=== PATIENT | female | born 1995 | race Caucasian/White ===

== ENCOUNTER 2024-04-13 18:24 | Emergency (ER) | payer BC ==
[~2024-04-13] VITALS: Ht 157.5 cm; Wt 83.0 kg
[2024-04-13 18:33] VITALS: BP 104/80; PULSE 95; RESP 20; TEMP 97.5; O2SAT 96
[2024-04-13] MEDS ORDERED: AMOX-101 PO (20:29)
[2024-04-13] MEDS: amoxicillin 250mg capsule PO ONE (20:47)
== END 2024-04-13 20:51 | disposition home or self-care (01) ==
LOC: ER 18:25
DX: H66.92 Otitis media, unspecified, left ear (principal)
CPT/HCPCS: 99283